=== PATIENT | male | born 1975 | race Hispanic/Latino ===

== ENCOUNTER 2016-08-04 07:22 | Emergency (ER) | payer OTHER ==
[2016-08-04 07:36] VITALS: BP 109/77; PULSE 86; RESP 16; TEMP 98.5; O2SAT 96; BMI 18.6
--- NOTE | 2016-08-04 09:56 | ED PDOC ---
HPI: Male Pain Time Seen by Provider: 08/04/16 07:43 Chief Complaint (Nursing): Male Genitourinary Chief Complaint (Provider): Male Genitourinary History Per: Patient History/Exam Limitations: no limitations Onset/Duration Of Symptoms: Hrs (since 2 am) Current Symptoms Are (Timing): Still Present Additional Complaint(s): 40 y/o male who presents to the emergency department with a complaint of swelling of the penis after wearing a condom that was on too tight since 2am. Denies taking blood thinners, difficulty urinating, blood in the urine, or testicular pain. Past Medical History Reviewed: Historical Data, Nursing Documentation, Vital Signs Vital Signs: Last Vital Signs Temp 98.5 F 08/04/16 07:35 Pulse 86 08/04/16 07:35 Resp 16 08/04/16 07:35 BP 109/77 08/04/16 07:35 Pulse Ox 96 08/04/16 07:35 - Medical History PMH: No Chronic Diseases - Surgical History Surgical History: Tonsillectomy - Family History Family History: States: Unknown Family Hx - Social History Current smoker - smoking cessation education provided: No Alcohol: Social Drugs: Denies - Allergies Allergies/Adverse Reactions: Allergies Allergy/AdvReac Type Severity Reaction Status Date / Time No Known Allergies Allergy Verified 08/04/16 07:43 Review of Systems ROS Statement: Except As Marked, All Systems Reviewed And Found Negative Genitourinary Male: Positive for: Other (Swelling of the penis). 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 Penis shaft is non tender and normal in shape and size. Glands are normal in color and non swollen or tender. No phimosis or paraphimosis. ). Negative for: normal genitalia (Foreskin is ecchymotic and swollen but easily retractable forward and back. ), scrotum tenderness (R), scrotum tenderness (L) , testicular tenderness (R), testicular tenderness (L) Neurologic/Psych: Positive for: Alert, Oriented - ECG O2 Sat by Pulse Oximetry: 96 (RA) Pulse Ox Interpretation: Normal Medical Decision Making Medical Decision Making: Time: 7:43 Initial impression: Swelling of the penis Initial plan: --Motrin 600 mg PO --Revaluation 1015 On reevaluation No pain. Foreskin swelling decreased. No phymois or paraphymosis. Glans of penis normal exam. Scribe Attestation: Documented by Hina Cain, acting as a scribe for Earline Torres MD. Provider Scribe Attestation: All medical record entries made by the Scribe were at my direction and personally dictated by me. I have reviewed the chart and agree that the record accurately reflects my personal performance of the history, physical exam, medical decision making, and the department course for this patient. I have also personally directed, reviewed, and agree with the discharge instructions and disposition.- Disposition - Clinical Impression Clinical Impression: Injury to scrotum, penis, or foreskin, Traumatic blister of penis - Patient ED Disposition Is Patient to be Admitted: No Doctor Will See Patient In The: Office Counseled Patient/Family Regarding: Studies Performed, Diagnosis, Need For Followup - Disposition Referrals: Quincy Rader MD [Staff Provider] - Disposition: Routine/Home Disposition Time: 10:32 Condition: GOOD Additional Instructions: Return for worsening within 24 hr. Follow up with your PCP in 2 days Instructions: Foreskin Care (ED), Hematoma (ED)
== END 2016-08-04 11:52 | disposition home or self-care (01) ==
LOC: H.ER 07:22
DX: S39.94XA Unspecified injury of external genitals, initial encounter (principal); X50.1XXA Overexertion from prolonged static or awkward postures, initial encounter; Y92.89 Other specified places as the place of occurrence of the external cause